=== PATIENT | female | born 1985 | race Caucasian/White ===

== ENCOUNTER 2024-02-18 19:25 | Emergency (ER) | payer SELFPAY ==
[~2024-02-18] VITALS: Ht 165.1 cm; Wt 73.0 kg
[2024-02-18 19:46] VITALS: O2SAT 98
[2024-02-18 20:45] VITALS: TEMP 36.94740; O2SAT 98
[2024-02-18 21:13] VITALS: BP 142/93; PULSE 91; RESP 16
[2024-02-18] MEDS: SODIUM CHLORIDE 0.9% 1,000 ML IV ONE (21:13)
[2024-02-18] MEDS: ONDANSETRON HCL 4MG/2ML INJ IV ONE (21:13)
[2024-02-18] MEDS: MORPHINE SULFATE 4 MG/ML INJ (FOR IV/IM USE) IV ONE (21:13)
[2024-02-18 21:22] LABS: BASOPHILS % 0.4 % (0.0-2.0); EOSINOPHILS % 1.3 % (0.0-5.0); HEMATOCRIT. 40.5 % (36.0-48.0); HEMOGLOBIN. 13.4 g/dL (12.0-16.0); LYMPHOCYTES % 20.4 % (20.0-50.0); MEAN CORPUSCULAR HEMOGLOBIN 30.8 pg (28.0-32.0); MEAN CORPUSCULAR HGB CONC 33.1 g/dL (31.0-37.0); MEAN CORPUSCULAR VOLUME 93.2 fL (81.0-99.0); MEAN PLATELET VOLUME 8.3 fl (7.4-10.4); MONOCYTES % 6.7 % (2.0-8.0); NEUTROPHILS % 71.2 % (40.0-76.0); PLATELET 267 x1000/uL (130-400); RED BLOOD CELL COUNT 4.34 mill/uL (4.2-5.4)
[2024-02-18 21:28] LABS: CHLORIDE 108 mEq/L (98-107); SODIUM 136 mEq/L (136-145)
[2024-02-18 21:29] LABS: CALCIUM 9.4 mg/dL (8.7-10.4); CARBON DIOXIDE 22 mEq/L (21-32)
[2024-02-18 21:32] LABS: INR 0.9; PROTHROMBIN TIME 10.4 sec (9.6-11.0)
[2024-02-18 21:34] LABS: CREATININE 0.8 mg/dL (0.6-1.0); GLUCOSE 108 mg/dL (70-105); UREA NITROGEN BLOOD 15 mg/dL (9-23)
[2024-02-18 21:36] LABS: TROPONIN I HIGH SENSITIVITY < 4 ng/L (3.0-34)
== END 2024-02-18 21:19 | disposition short-term general hospital (02) ==
LOC: ER 19:25
DX: S10.93XA Contusion of unspecified part of neck, initial encounter (principal); R07.89 Other chest pain; V49.59XA Passenger injured in collision with other motor vehicles in traffic accident, initial encounter; Y93.89 Activity, other specified; Y92.89 Other specified places as the place of occurrence of the external cause; Y99.8 Other external cause status
CPT/HCPCS: 80048; 85025; 85610; 86850; 86900; 86901; 84484; 36415; 71045; 72170; 96361; 96374; 96375; 99291; J2405; J2270; J7030; Z7610